=== PATIENT | female | born 1940 | race Caucasian/White ===

== ENCOUNTER 2016-12-30 15:53 | Emergency (ER) | payer MEDICARE, OTHER ==
[~2016-12-30] VITALS: Ht 165.1 cm; Wt 77.1 kg
[~2016-12-30 15:53] MED LIST: ATROVASTATIN; BACTRIM DS TAB1 EACH PO; CARVEDILOL12.5 MG PO; CIPRO500 MG PO; CYCLOBENZAPRINE10 MG PO; CYMBALTA60 MG PO; DOXYCYCLINE HY100 MG PO; KEFLEX250 MG PO; KEFLEX500 MG PO; LIPITOR80 MG PO; METHADONE HCL10 MG PO; NORCO 5-325 TA1 EACH PO; OMEPRAZOLE20 MG PO; TRAZODONE HCL50 MG PO; VICODIN 5-5001 EACH PO
[2016-12-30] MEDS ORDERED: CEPHALEXIN500 MG PO (21:02)
== END 2016-12-30 21:30 | disposition home or self-care (01) ==
LOC: ED 15:53
DX: R07.89 Other chest pain (principal); N39.0 Urinary tract infection, site not specified; E78.00 Pure hypercholesterolemia, unspecified; K21.9 Gastro-esophageal reflux disease without esophagitis; Z90.49 Acquired absence of other specified parts of digestive tract; Z90.710 Acquired absence of both cervix and uterus; Z88.0 Allergy status to penicillin; Z88.2 Allergy status to sulfonamides; Z79.899 Other long term (current) drug therapy; Z79.01 Long term (current) use of anticoagulants; E66.9 Obesity, unspecified
CPT/HCPCS: 71010; 80053; 81001; 83605; 85025; 87040; 87077; 87088; 87186; 96361; 96374; 96375; 96376; 99284; J0696; J1885; J7030

== ENCOUNTER 2018-03-16 15:12 | Emergency (ER) | payer MEDICARE, OTHER ==
[~2018-03-16] VITALS: Ht 165.1 cm; Wt 77.1 kg
--- OUTSIDE RECORDS SUMMARY | ~2018-03-16 | XMS | Clinical Summary ---
Demographics + + + | Address | [address] | | | [place] [address] | + + + | Home Phone | | + + + | Preferred Language | Unknown | + + + | Marital Status | | + + + | Buddhism Affiliation | Unknown | + + + | Race | Unknown | + + + | Ethnic Group | Unknown | + + + Author + + + | Author | [facility] [employer] | + + + | Organization | [facility] [employer] | + + + | Address | Unknown | + + + | Phone | Unavailable | + + + Support + + + + + | Name | Relationship | Address | Phone | + + + + + | Ernestina Collado | ECON | [address] | | | | | [place], | | | | | [place] [address] | | + + + + + | Yadira Canchola | ECON | Unknown | | + + + + + Care Team Providers + +------+ + | Care Medical File Clerk Name | Role | Phone | + +------+ + | Ruben Hyman MD | PP | Unavailable | + +------+ + Allergies + + + + + + | Active Allergy | Reactions | Severity | Noted | Comments | | | | | Date | | + + + + + + | Amoxicillin | Nausea Only | Low | 04/15/20 | | | | | | 12 | | + + + + + + | Sulfa Antibiotics | Nausea Only | Low | 09/24/19 | | | | | | 12 | | + + + + + + Current Medications + + +-------+---------+------+------+-------+ | Prescription | Sig. | Disp. | Refills | Star | End | Statu | | | | | | t | Date | s | | | | | | Date | | | + + +-------+---------+------+------+-------+ | | Take by mouth. | | | | | Activ | | Hydrocodone-Acetamin | | | | | | e | | ophen (VICODIN PO) | | | | | | | + + +-------+---------+------+------+-------+ | methadone | Take 10 mg by mouth | | | | | Activ | | (DOLOPHINE) 10 MG | 2 (two) times daily. | | | | | e | | tablet | | | | | | | + + +-------+---------+------+------+-------+ | omeprazole | Take 20 mg by mouth | | | | | Activ | | (PRILOSEC) 20 MG | daily. | | | | | e | | capsule | | | | | | | + + +-------+---------+------+------+-------+ | | Take 1 tablet by | | | | | Activ | | hydrocodone-acetamin | mouth every 4 (four) | | | | | e | | ophen (VICODIN) | hours as needed. | | | | | | | 5-500 MG per tablet | | | | | | | + + +-------+---------+------+------+-------+ | duloxetine | Take 60 mg by mouth | | | | | Activ | | (CYMBALTA) 60 MG | daily. | | | | | e | | capsule | | | | | | | + + +-------+---------+------+------+-------+ Active Problems + + + | Problem | Noted Date | + + + | NSTEMI (non-ST elevated myocardial infarction) | 09/24/2011 | + + + | Urinary tract infection, site not specified | 09/24/2011 | + + + | Paraplegia (lower) | 09/24/2011 | + + + Social History + +-------+ +--------+------+ | Tobacco Use | Types | Packs/Day | Years | Date | | | | | Used | | + +-------+ +--------+------+ | Never Smoker | | | | | + +-------+ +--------+------+ + + +---------+ + | Alcohol Use | Drinks/We | oz/Week | Comments | | | ek | | | + + +---------+ + | No | | | | + + +---------+ + + + + | Sex Assigned at | Date Recorded | | | | + + + | Not on file | | + + + Last Filed Vital Signs + + + + | Vital Sign | Reading | Time Taken | + + + + | Blood Pressure | 108/72 | 09/28/2011 11:18 AM PDT | + + + + | Pulse | 83 | 09/28/2011 11:18 AM PDT | + + + + | Temperature | 36.4 C (97.6 F) | 09/28/2011 11:18 AM PDT | + + + + | Respiratory Rate | 20 | 09/28/2011 11:18 AM PDT | + + + + | Oxygen Saturation | 92% | 09/28/2011 11:18 AM PDT | + + + + | Inhaled Oxygen | - | - | | Concentration | | | + + + + | Weight | 88.7 kg (195 lb 8.8 | 09/28/2011 3:37 AM PDT | | | oz) | | + + + + | Height | 165.1 cm (5' 5") | 09/24/2011 10:28 PM PDT | + + + + | Body Mass Index | 32.54 | 09/28/2011 3:37 AM PDT | + + + + Plan of Treatment Not on file Results Not on filefrom Last 3 Months Insurance + +--------+ +--------+-------+ + | Payer | Benefi | Subscriber | Type | Phone | Address | | | t Plan | ID | | | | | | / | | | | | | | Group | | | | | + +--------+ +--------+-------+ + | [place] | [id number] | Medica | | | | FAMILY | [place] | | re | | | | | RE | | | | | | | FAMILY | | | | | + +--------+ +--------+-------+ + | MEDICAID | [place] | [id number] | | | [address] | | | | | | | [place] | | | FAMILY | | | | [address] | | | CARE | | | | | + +--------+ +--------+-------+ + + +--------+ +--------+ + + | Guarantor Name | Accoun | Relation to | Date | Phone | Billing Address | | | t Type | Patient | of | | | | | | | | | | + +--------+ +--------+ + + | MICHELLE GUADALUPE | Person | Self [birth year] | Home: | [address] | | | al/Fam | | 1941 | [phone] | [place] | | | [place] | | | [phone] | [phone] | + +--------+ +--------+ + +
--- OUTSIDE RECORDS SUMMARY | ~2018-03-16 | XMS | Clinical Summary ---
Demographics + + + | Address | [address] | | | [place] [address] | + + + | Home Phone | | + + + | Preferred Language | Unknown | + + + | Marital Status | Single | + + + | Sabianism Affiliation | Unknown | + + + | Race | White | + + + | Ethnic Group | Not or | + + + Author + + + | Author | [facility] | + + + | Organization | [facility] | + + + | Address | Unknown | + + + | Phone | Unavailable | + + + Support + + +---------+ + | Name | Relationship | Address | Phone | + + +---------+ + | BARBIE SUAREZ | ECON | Unknown | | + + +---------+ + Care Team Providers + +------+ + | Care Shearer Screen Measurer And Trimmer Name | Role | Phone | + +------+ + | Ruben Hyman MD | PP | Unavailable | + +------+ + Source Comments [facility]AD is [facility] both [facility] and [facility] Allergies + + + + + + | Active Allergy | Reactions | Severity | Noted | Comments | | | | | Date | | + + + + + + | Amoxicillin | | | 12/12/19 | | | | | | 07 | | + + + + + + | Sulfa (Sulfonamide | | | 12/12/19 | | | Antibiotics) | | | 07 | | + + + + + + Current Medications + + +-------+---------+------+------+-------+ | Prescription | Sig. | Disp. | Refills | Star | End | Statu | | | | | | t | Date | s | | | | | | Date | | | + + +-------+---------+------+------+-------+ | HYDROCODONE | takes 4- 6 times | | | | | Activ | | COMPOUND OR | daily | | | | | e | + + +-------+---------+------+------+-------+ | Propoxyphene | takes 4 - 6 times | | | | | Activ | | N-Acetaminophen | daily | | | | | e | | 100-650 mg Oral Tab | | | | | | | + + +-------+---------+------+------+-------+ | Lidocaine | every 2 days | | | | | Activ | | (LIDODERM) 5 %(700 | | | | | | e | | mg/patch) Topical | | | | | | | | Adhesive Patch, | | | | | | | | Medicated | | | | | | | + + +-------+---------+------+------+-------+ | LASIX OR | 1 per day | | | | | Activ | | | | | | | | e | + + +-------+---------+------+------+-------+ | MACRODANTIN OR | 1 tablet daily | | | | | Activ | | | | | | | | e | + + +-------+---------+------+------+-------+ Active Problems + + + | Problem | Noted Date | + + + | Neuropathic Pain Syndrome (Non-Herpetic) T5 distribution | 12/11/2006 | + + + + + | Overview: S/p vertebral fracture and spinal cord injury T5 T6 | + + + + + | Paraplegia T5 T6 spinal cord injury with hypesthesia no pain | 12/11/2006 | + + + | Neurogenic bladder | 12/11/2006 | + + + | Neurogenic bowel | 12/11/2006 | + + + | Opioid dependence, continuous (HCC) | 12/11/2006 | + + + | Spondylosis with myelopathy, thoracic region | 12/11/2006 | + + + Family History + + +------+ + | Medical History | Relation | Name | Comments | + + +------+ + | Arthritis | Mother | | | + + +------+ + + +------+--------+ + | Relation | Name | Status | Comments | + +------+--------+ + | Mother | | | | + +------+--------+ + Social History + +-------+ +--------+------+ | Tobacco Use | Types | Packs/Day | Years | Date | | | | | Used | | + +-------+ +--------+------+ | Former Smoker | | | | | + [...] + + + | Blood Pressure | 100/68 | 12/11/2006 3:10 PM PDT | + + + + | Pulse | 74 | 12/11/2006 3:10 PM PDT | + + + + | Temperature | - | - | + + + + | Respiratory Rate | 16 | 12/11/2006 3:10 PM PDT | + + + + | Oxygen Saturation | - | - | + + + + | Inhaled Oxygen | - | - | | Concentration | | | + + + + | Weight | - | - | + + + + | Height | 165.1 cm (5' 5") | 12/11/2006 3:10 PM PDT | + + + + | Body Mass Index | - | - | + + + + Plan of Treatment + + + + + | Health Maintenance | Due Date | Last Done | Comments | + + + + + | Pneumococcal (Adult) | | | | | (1 of 2 - PCV13) | 4 | | | + + + + + | INFLUENZA VACCINE | | | | | (FLU SHOT) | 8 | | | + + + + + Results Not on filefrom Last 3 Months Insurance + +--------+ +--------+ + + | Payer | Benefi | Subscriber | Type | Phone | Address | | | t Plan | ID | | | | | | / | | | | | | | Group | | | | | + +--------+ +--------+ + + | MEDICARE | MEDICA | xxxxxxxxxx | Medica | [phone]- | [address] | | | [place] & | | re | [phone] | [place] [address] | | | B | | | | | + +--------+ +--------+ + + + +--------+ +--------+ + + | Guarantor Name | Accoun | Relation to | Date | Phone | Billing Address | | | t Type | Patient | of | | | | | | | | | | + +--------+ +--------+ + + | RAMOS MALHOTRA | Person | Self | [birth year] | Home: | [address] | | | al/Fam | | 1941 | [phone] | [place] [address] | | | [place] | | | [phone] | | + +--------+ +--------+ + +
--- OUTSIDE RECORDS SUMMARY | ~2018-03-16 | XMS | Clinical Summary ---
Demographics + + + | Address | [address] | | | [place] [address] | + + + | Home Phone | | + + + | Preferred Language | Unknown | + + + | Marital Status | Single | + + + | Catholic Affiliation | Unknown | + + + | Race | White | + + + | Ethnic Group | Not or | + + + Author + + + | Author | [facility] | + + + | Organization | [facility] | + + + | Address | Unknown | + + + | Phone | Unavailable | + + + Support + + +---------+ + | Name | Relationship | Address | Phone | + + +---------+ + | BARBIE SUAREZ | ECON | Unknown | | + + +---------+ + Care Team Providers + +------+ + | Care Metal Sander Name | Role | Phone | + +------+ + | Ruben Hyman MD | PP | Unavailable | + +------+ + Source Comments [facility] Allergies + + + + + + [...] | Medica | [phone]- | [address] | | | RE A & | | re | [phone] | [place] [address] | | | B | | | [...] | 1941 | [phone] | [place] [address] | | | [place] | | | [phone] | | + +--------+ +--------+ + +
--- OUTSIDE RECORDS SUMMARY | ~2018-03-16 | XMS | Clinical Summary ---
Demographics + + + | Address | [address] | | | [place] [address] | + + + | Home Phone | | + + + | Preferred Language | Unknown | + + + | Marital Status | | + + + | Faith Affiliation | Unknown | + + + | Race | Unknown | + + + | Ethnic Group | Unknown | + + + Author + + + | Author | [facility] [employer] | + + + | Organization | [facility] [employer] | + + + | Address | Unknown | + + + | Phone | Unavailable | + + + Support + + + + + | Name | Relationship | Address | Phone | + + + + + | Ernestina Collado | ECON | [address] | | | | | [place], | | | | | [place] [address] | | + + + + + | Yadira Canchola | ECON | Unknown | | + + + + + Care Team Providers + +------+ + | Care Brand Mgr Name | Role | Phone | + [...] | [place] - [employer] [place] | [id number] | Medica | | | | FAMILY | [place] | | re | | | | | RE | | | | | | | FAMILY | | | | | + +--------+ +--------+-------+ + | MEDICAID | [place] | [id number] | | | [address] | | | | | | | [place] | | | FAMILY | | | | [address] | | | CARE | | | [...] Self | [birth year] | Home: | [address] | | | al/Fam | | 1941 | [phone] | [place] | | | [place] | | | [phone] | [address] | + +--------+ +--------+ + +
[~2018-03-16 15:12] MED LIST changes: +CEPHALEXIN500 MG PO
== END 2018-03-16 18:55 | disposition home or self-care (01) ==
LOC: ED 15:12
DX: L89.319 Pressure ulcer of right buttock, unspecified stage (principal); G89.29 Other chronic pain; K21.9 Gastro-esophageal reflux disease without esophagitis; E78.00 Pure hypercholesterolemia, unspecified; Z88.0 Allergy status to penicillin; Z88.2 Allergy status to sulfonamides; Z79.899 Other long term (current) drug therapy
CPT/HCPCS: 99283